=== PATIENT | female | born 1945 | race Caucasian/White ===

== ENCOUNTER 2019-11-10 21:31 | Observation (INO) | payer MEDICARE, OTHER ==
[~2019-11-10] VITALS: Ht 162.6 cm; Wt 90.9 kg
[~2019-11-10 21:31] MED LIST: ALPR0.5T7 PO; AMLO5TAB4 PO; ASPI-496 PO; BUME2TAB3 PO; DAPA5TAB PO; FENO145T32 PO; FLUT1DIS3 INH; GABA800T PO; IBUP-1222 PO; ISOS30TA8 PO; LORA-445 PO; LORA0.5T PO; METF10002 PO; METH500T97 PO; METO50TA82 PO; OMEG1CAP6 PO; OMEP20CA9 PO; OXYC-307 PO; PRAV40TA2 PO; PREVASTATIN; RANO500T2 PO; RIVA20TA PO; ROSU20TA2 PO; VALS80TA30 PO; VENL150C PO; VENL75TA2 PO; ZOLP10TA PO
--- NOTE | 2019-11-10 21:36 | NUR ---
THIS IS A 74Y F BIB EMS FOR DIZZINESS AND FEELING IF SHE HAS BEEN DRINKING. PT A/O4 NEURO INTACT EXAM SHOWED NO DEFICITS AT THIS TIME. PIV STARTED PER EMS, PT CONNECTED TO ALL MONITORING
--- NOTE | 2019-11-10 21:47 | NUR ---
DR MANCILLA AT BEDSIDE FOR ASSESSMENT.
[2019-11-10] MEDS ORDERED: POTASSIUM CHLORIDE (21:55)
[2019-11-10] MEDS ORDERED: SODIUM CHLORIDE FLUSH 10ML SYR IVF ONE (22:00)
[2019-11-10 22:50] LABS: BASOPHILS # (AUTO) 0.05 x10^3/uL (0-0.1); BASOPHILS % (AUTO) 1 % (0-1); EOSINOPHILS # (AUTO) 0.26 x10^3/uL (0-0.4); EOSINOPHILS % (AUTO) 4 % (1-7); LYMPHOCYTES # (AUTO) 2.34 x10^3/uL (1-3.4); LYMPHOCYTES % (AUTO) 32 % (22-44); MD NO; MEAN CORPUSCULAR HEMOGLOBIN 25.8 pg (27.0-34.8); MEAN CORPUSCULAR HGB CONC 32.3 g/dL (32.4-35.8); MEAN PLATELET VOLUME 8.4 fL (7.4-10.4); MONOCYTES # (AUTO) 0.63 x10^3/uL (0.2-0.8); MONOCYTES % (AUTO) 9 % (2-9); NEUTROPHILS # (AUTO) 3.99 x10^3/uL (1.8-6.8); NEUTROPHILS % (AUTO) 55 % (42-75); PLATELET COUNT 233 x10^3/uL (130-400); RED BLOOD COUNT 5.18 x10^6/uL (3.82-5.3)
[2019-11-10 22:57] LABS: ALANINE AMINOTRANSFERASE 43 U/L (12-78); ALBUMIN 3.6 g/dL (3.4-5.0); ANION GAP 8 mmol/L (5-15); CALCIUM 8.7 mg/dL (8.5-10.1); CHLORIDE 102 mmol/L (98-107); CREATININE 2.07 mg/dL (0.55-1.02)
--- NOTE | 2019-11-10 23:00 | NUR ---
PT BACK FROM IMAGING AT THIS TIME
[2019-11-10 23:03] LABS: INTERNATIONAL NORMALIZED RATIO 1.14 (0.93-1.1); PROTHROMBIN TIME 11.8 Seconds (9.6-11.5)
[2019-11-10 23:04] LABS: ALKALINE PHOSPHATASE 111 U/L (45-117); BILIRUBIN,TOTAL 0.3 mg/dL (0.2-1.0); TOTAL PROTEIN 7.5 g/dL (6.4-8.2)
[2019-11-10 23:06] LABS: SALICYLATE LEVEL < 1.7 mg/dL (2.8-20.0)
--- NOTE | 2019-11-10 23:19 | NUR ---
URINE WALKED TO LAB
--- NOTE | 2019-11-10 23:50 | NUR ---
ATTEMPTED TO AMBULATE PT PER DR MANCILLA, PT UNABLE TO WALK WITH STEADY GAIT. PT REQ ASSIST FOR AMBULATION AND SITTING BACK INTO [facility] ERP TO BE UPDATED
[2019-11-10 23:58] LABS: MICROSCOPIC NOT IND
[2019-11-11] MEDS ORDERED: KETOROLAC 30 MG/1 ML ONE (00:08)
--- NOTE | 2019-11-11 00:13 | NUR ---
DR LOPEZ AT BEDSIDE TO DISCUSS POC AND ADMIT
[2019-11-11 00:19] LABS: AMPHETAMINE SCREEN, URINE Negative (Negative); BARBITURATE SCREEN, URINE Negative (Negative); BENZODIAZEPINE SCREEN, URINE Negative (Negative); CANNABINOID SCREEN, URINE Negative (Negative); METHADONE SCREEN, URINE Negative (Negative); OPIATE SCREEN, URINE Negative (Negative)
[2019-11-11 00:20] LABS: COCAINE SCREEN, URINE Negative (Negative)
[2019-11-11] MEDS ORDERED: KETOROLAC 30 MG/1 ML IVPush ONE (00:30)
--- NOTE | 2019-11-11 01:14 | NUR ---
[facility] AT BEDSIDE FOR ADMIT
[2019-11-11] MEDS ORDERED: BISACODYL 10 MG SUPP PR PRN (01:30)
[2019-11-11] MEDS ORDERED: LABETALOL 5MG/ML, 20ML IVPush PRN (01:30)
[2019-11-11] MEDS ORDERED: ENALAPRILAT 1.25 MG/ML, 2ML IVPush PRN (01:30)
[2019-11-11] MEDS ORDERED: ONDANSETRON 2MG/ML, 2ML IVPush PRN (01:30)
[2019-11-11] MEDS ORDERED: MELATONIN 5 MG TABLET PO PRN (01:30)
[2019-11-11] MEDS ORDERED: ONDANSETRON ODT 4 MG PO PRN (01:30)
[2019-11-11] MEDS ORDERED: HEPARIN 5,000 UNITS/ML, 1ML SQ SCH (01:30)
[2019-11-11] MEDS ORDERED: OXYcodone/APAP 10/325MG TABLET PO SCH (01:30)
[2019-11-11] MEDS ORDERED: METOCLOPRAMIDE 5 MG/ML, 2ML IVPush PRN (01:30)
[2019-11-11] MEDS ORDERED: DOCUSATE 100 MG CAPSULE PO PRN (01:30)
[2019-11-11] MEDS ORDERED: POLYETHYLENE GLYCOL 17 GM PACKET PO PRN (01:30)
[2019-11-11] MEDS ORDERED: morphine SULFATE 10 MG/ML, 1ML IVPush PRN (01:30)
[2019-11-11] MEDS ORDERED: POTASSIUM CHLORIDE 20 MEQ TAB.ER.PRT PO ONE (03:00)
[2019-11-11] MEDS ORDERED: MECLIZINE 25 MG TABLET PO PRN (03:00)
--- NOTE | 2019-11-11 03:22 | NUR ---
REPORT TO LUZMARIA SAMUELS READY FOR TRANSPORT TO FLOOR AT THIS TIME ALL QUESTIONS ADDRESSED
[2019-11-11 03:33] LABS: TROPONIN I < 0.015 ng/mL (0.000-0.045)
[2019-11-11 03:39] VITALS: BP 135/65
[2019-11-11 06:08] LABS: ALANINE AMINOTRANSFERASE 38 U/L (12-78); ALBUMIN 3.5 g/dL (3.4-5.0); ANION GAP 9 mmol/L (5-15); CALCIUM 8.9 mg/dL (8.5-10.1); CHLORIDE 104 mmol/L (98-107)
[2019-11-11 06:13] LABS: ALKALINE PHOSPHATASE 101 U/L (45-117); BILIRUBIN,TOTAL 0.3 mg/dL (0.2-1.0); CHOL/HDL RATIO 3.2; CHOLESTEROL, TOTAL 120 mg/dL (140-239); HDL CHOL % 32 % (28-40); HDL CHOLESTEROL (DIRECT) 38 mg/dL (40-60); LDL CHOLESTEROL,CALCULATED 53 mg/dL (54-169); LDL/HDL RATIO 1.4 (0.5-3.0); TRIGLYCERIDES 144 mg/dL (50-200); VLDL CHOLESTEROL 29 mg/dL (0-25)
[2019-11-11 06:37] LABS: MEAN CORPUSCULAR HEMOGLOBIN 25.4 pg (27.0-34.8); MEAN CORPUSCULAR HGB CONC 31.5 g/dL (32.4-35.8); MEAN PLATELET VOLUME 8.4 fL (7.4-10.4); PLATELET COUNT 217 x10^3/uL (130-400); RED BLOOD COUNT 4.99 x10^6/uL (3.82-5.3); RED CELL DISTRIBUTION WIDTH 15.9 % (9.6-15.2)
[2019-11-11 06:38] LABS: BASOPHILS # (AUTO) 0.05 x10^3/uL (0-0.1); BASOPHILS % (AUTO) 1 % (0-1); EOSINOPHILS # (AUTO) 0.27 x10^3/uL (0-0.4); EOSINOPHILS % (AUTO) 4 % (1-7); LYMPHOCYTES # (AUTO) 2.68 x10^3/uL (1-3.4); LYMPHOCYTES % (AUTO) 35 % (22-44); MD SCAN; MONOCYTES % (AUTO) 9 % (2-9); NEUTROPHILS # (AUTO) 3.87 x10^3/uL (1.8-6.8); NEUTROPHILS % (AUTO) 51 % (42-75)
[2019-11-11 06:46] VITALS: BP 140/63
[2019-11-11] MEDS: SALMETEROL INH SCH ×2 (09:00→17:24)
[2019-11-11] MEDS: FLUTICASONE INH SCH ×2 (09:00→17:24)
[2019-11-11] MEDS: METOPROLOL TARTRATE 50 MG TAB PO SCH (09:45)
[2019-11-11] MEDS: BUMETANIDE 1 MG TABLET PO SCH (09:56)
[2019-11-11] MEDS: VALSARTAN 80 MG TABLET PO SCH (09:56)
[2019-11-11] MEDS: ACETAMINOPHEN 325 MG TABLET PO PRN (09:56)
[2019-11-11 12:17] VITALS: BP 130/75
[2019-11-11] MEDS: RIVAROXABAN 20 MG TABLET PO SCH (17:21)
[2019-11-11 19:24] VITALS: BP 147/63
[2019-11-11] MEDS: TRAZODONE 50MG TABLET PO PRN ×2 (20:22→21:25)
[2019-11-11] MEDS: OXYcodone/APAP 10/325MG TABLET PO PRN (21:26)
[2019-11-12 01:30] VITALS: BP_SYST 114; BP_SYST 124; BP_SYST 145; BP_DIAS 59; BP_DIAS 66; BP_DIAS 69
[2019-11-12 06:37] LABS: ALBUMIN 3.2 g/dL (3.4-5.0); CALCIUM 8.9 mg/dL (8.5-10.1); CHLORIDE 107 mmol/L (98-107)
[2019-11-12 06:43] LABS: ALANINE AMINOTRANSFERASE 34 U/L (12-78); ALKALINE PHOSPHATASE 95 U/L (45-117); ANION GAP 4 mmol/L (5-15); BILIRUBIN,TOTAL 0.3 mg/dL (0.2-1.0); CREATININE 1.53 mg/dL (0.55-1.02); TOTAL PROTEIN 6.5 g/dL (6.4-8.2)
[2019-11-12 08:13] VITALS: BP 146/65
[2019-11-12] MEDS: SALMETEROL INH SCH ×2 (08:44→20:17)
[2019-11-12] MEDS: FLUTICASONE INH SCH ×2 (08:44→20:17)
[2019-11-12] MEDS: METOPROLOL TARTRATE 50 MG TAB PO SCH ×2 (08:49→21:04)
[2019-11-12] MEDS: BUMETANIDE 1 MG TABLET PO SCH (08:49)
[2019-11-12] MEDS: VALSARTAN 80 MG TABLET PO SCH (08:49)
[2019-11-12] MEDS ORDERED: SUMATRIPTAN 50 MG TABLET PO ONE (11:00)
[2019-11-12 12:25] VITALS: BP 153/72
[2019-11-12] MEDS ORDERED: SUMATRIPTAN 50 MG TABLET PO PRN (17:00)
[2019-11-12] MEDS: VENLAFAXINE XR 37.5MG CAP.ER.24H PO SCH (17:11)
[2019-11-12] MEDS: RIVAROXABAN 20 MG TABLET PO SCH (17:11)
[2019-11-12 19:18] VITALS: BP 166/60
[2019-11-12 20:51] VITALS: BP 176/74
[2019-11-12] MEDS: ATORVASTATIN 40 MG TABLET PO SCH (21:04)
[2019-11-12] MEDS: TRAZODONE 50MG TABLET PO PRN ×2 (21:05→22:21)
[2019-11-12 22:19] VITALS: BP 165/66
[2019-11-13 02:06] VITALS: BP 103/61
[2019-11-13 05:48] LABS: ANION GAP 4 mmol/L (5-15); CALCIUM 8.7 mg/dL (8.5-10.1); CHLORIDE 105 mmol/L (98-107)
[2019-11-13 07:32] VITALS: BP 112/58
[2019-11-13] MEDS: VENLAFAXINE XR 37.5MG CAP.ER.24H PO SCH (08:52)
[2019-11-13] MEDS: BUMETANIDE 1 MG TABLET PO SCH (08:53)
[2019-11-13] MEDS: VALSARTAN 80 MG TABLET PO SCH (08:53)
[2019-11-13] MEDS: METOPROLOL TARTRATE 50 MG TAB PO SCH ×2 (08:54→20:51)
[2019-11-13] MEDS: SALMETEROL INH SCH (09:00)
[2019-11-13] MEDS: FLUTICASONE INH SCH (09:00)
[2019-11-13] MEDS: OXYcodone/APAP 10/325MG TABLET PO PRN ×2 (10:20→20:53)
[2019-11-13 12:34] VITALS: BP 125/67
[2019-11-13] MEDS: RIVAROXABAN 20 MG TABLET PO SCH (17:41)
[2019-11-13 18:54] VITALS: BP 127/76
[2019-11-13 20:50] VITALS: BP 125/70
[2019-11-13] MEDS: TRAZODONE 50MG TABLET PO PRN ×2 (20:51→22:14)
[2019-11-13] MEDS: ATORVASTATIN 40 MG TABLET PO SCH (20:52)
[2019-11-14 00:55] VITALS: BP 113/62
[2019-11-14 06:24] VITALS: BP 122/62
[2019-11-14] MEDS: BUMETANIDE 1 MG TABLET PO SCH (09:15)
[2019-11-14] MEDS: VALSARTAN 80 MG TABLET PO SCH (09:15)
[2019-11-14] MEDS: VENLAFAXINE XR 37.5MG CAP.ER.24H PO SCH (09:15)
[2019-11-14] MEDS: METOPROLOL TARTRATE 50 MG TAB PO SCH (09:15)
[2019-11-14] MEDS: ACETAMINOPHEN 325 MG TABLET PO PRN (10:30)
[2019-11-14 12:01] VITALS: BP 122/77
[2019-11-14] MEDS ORDERED: LOSA25TA12 PO (12:18)
[2019-11-14] MEDS ORDERED: HYDR-3342 PO (12:18)
[2019-11-14] MEDS ORDERED: TRAZ50TA66 PO (12:18)
[2019-11-14] MEDS ORDERED: GLIM4TAB8 PO (12:18)
[2019-11-14] MEDS ORDERED: VENL37.52 PO (12:18)
[2019-11-14] MEDS ORDERED: PROP10TA51 PO (12:18)
[2019-11-14] MEDS ORDERED: ROSU20TA29 PO (12:18)
[2019-11-14] MEDS ORDERED: METO50TA82 PO (12:18)
[2019-11-14] MEDS: OXYcodone/APAP 10/325MG TABLET PO PRN (16:15)
== END 2019-11-14 16:23 ==
LOC: ED 11-11 00:57 → INTOOBSV 11-11 01:29 → EDIP 11-11 01:29 → 4WST 11-11 03:31
PROVIDERS: ADMIT Family Medicine; ATTEND Family Medicine
DX: I95.1 Orthostatic hypotension (principal); R26.0 Ataxic gait; G43.909 Migraine, unspecified, not intractable, without status migrainosus; E87.6 Hypokalemia; I13.0 Hypertensive heart and chronic kidney disease with heart failure and stage 1 through stage 4 chronic kidney disease, or unspecified chronic kidney disease; E11.22 Type 2 diabetes mellitus with diabetic chronic kidney disease; I50.9 Heart failure, unspecified; N18.4 Chronic kidney disease, stage 4 (severe); I25.2 Old myocardial infarction; E66.9 Obesity, unspecified; F41.8 Other specified anxiety disorders; J44.9 Chronic obstructive pulmonary disease, unspecified; I48.91 Unspecified atrial fibrillation; G89.29 Other chronic pain; E78.5 Hyperlipidemia, unspecified; F11.21 Opioid dependence, in remission; I25.110 Atherosclerotic heart disease of native coronary artery with unstable angina pectoris; K21.9 Gastro-esophageal reflux disease without esophagitis; G47.30 Sleep apnea, unspecified; Z79.01 Long term (current) use of anticoagulants; Z86.718 Personal history of other venous thrombosis and embolism; Z99.81 Dependence on supplemental oxygen; Z87.891 Personal history of nicotine dependence; Z88.0 Allergy status to penicillin; Z79.899 Other long term (current) drug therapy
CPT/HCPCS: 36415; 70450; 70551; 80048; 80053; 80061; 80307; 81003; 83036; 83735; 84100; 84443; 84484; 85025; 85610; 85730; 93005; 93306; 93880; 96374; 97116; 97163; 97166; 97530; 99285; G0378; J1885; Q0162